=== PATIENT | male | born 1955 | race Caucasian/White ===

== ENCOUNTER 2016-09-05 07:36 | Day surgery (SDC) | payer OTHER ==
[~2016-09-05] VITALS: Ht 177.8 cm; Wt 124.7 kg
[~2016-09-05 07:36] MED LIST: AMARYL2 MG PO; AVAPRO300 MG PO; CYMBALTA30 MG PO; CYMBALTA60 MG PO; FUROSEMIDE40 MG PO; GABAPENTIN300 MG PO; GLIMEPIRIDE2 MG PO; HYDROCODON-ACE1 EAC7 PO; K-DUR20 MEQ PO; METAXALONE800 MG PO; METFORMIN HCL1000 MG PO; NORVASC5 MG PO; PERCOCET 5/31 TABLET PO; PRAVASTATIN SOD40 MG PO; VOLTAREN 1% GE100 GM TP; ZANAFLEX4 M1 PO
[2016-09-05 08:33] LABS: POINT-OF-CARE METER ID UU13113694; POINT-OF-CARE USER ID AHSRSCSLC11
== END 2016-09-05 09:43 | disposition home or self-care (01) ==
LOC: PAIN 07:36 → SDC 08:30 → PAIN 09:43
PROVIDERS: Anesthesiology Pain Medicine
DX: M47.812 Spondylosis without myelopathy or radiculopathy, cervical region (principal); M54.2 Cervicalgia; G89.29 Other chronic pain; M48.06 Spinal stenosis, lumbar region; M47.816 Spondylosis without myelopathy or radiculopathy, lumbar region; E78.5 Hyperlipidemia, unspecified; G56.21 Lesion of ulnar nerve, right upper limb; M96.1 Postlaminectomy syndrome, not elsewhere classified; I10 Essential (primary) hypertension; D11.9 Benign neoplasm of major salivary gland, unspecified; Z87.891 Personal history of nicotine dependence; Z79.84 Long term (current) use of oral hypoglycemic drugs
CPT/HCPCS: 82948; J1030; J2250; J3010; S0020

== ENCOUNTER 2016-09-12 07:21 | Day surgery (SDC) | payer OTHER ==
[~2016-09-12] VITALS: Ht 177.8 cm; Wt 124.7 kg
[2016-09-12 08:05] LABS: POINT-OF-CARE METER ID UU13113694
== END 2016-09-12 09:23 | disposition home or self-care (01) ==
LOC: PAIN 07:21 → SDC 08:00 → PAIN 08:00
PROVIDERS: Anesthesiology Pain Medicine
DX: M47.812 Spondylosis without myelopathy or radiculopathy, cervical region (principal); M54.2 Cervicalgia; G89.29 Other chronic pain; M50.30 Other cervical disc degeneration, unspecified cervical region; M47.26 Other spondylosis with radiculopathy, lumbar region; I10 Essential (primary) hypertension; E11.9 Type 2 diabetes mellitus without complications; E78.5 Hyperlipidemia, unspecified; G56.21 Lesion of ulnar nerve, right upper limb; Z87.891 Personal history of nicotine dependence; Z79.84 Long term (current) use of oral hypoglycemic drugs; Z79.891 Long term (current) use of opiate analgesic
CPT/HCPCS: 82948; J1030; J2250; J3010; S0020

== ENCOUNTER 2016-12-15 10:33 | Day surgery (SDC) | payer OTHER ==
[~2016-12-15] VITALS: Ht 177.8 cm; Wt 119.2 kg
[2016-12-15 11:00] LABS: POINT-OF-CARE METER ID UU14174212
== END 2016-12-15 12:08 | disposition home or self-care (01) ==
LOC: PAIN 10:33 → SDC 11:30 → PAIN 12:08
PROVIDERS: Anesthesiology Pain Medicine
DX: M47.812 Spondylosis without myelopathy or radiculopathy, cervical region (principal); M54.2 Cervicalgia; G89.29 Other chronic pain; M96.1 Postlaminectomy syndrome, not elsewhere classified; M47.26 Other spondylosis with radiculopathy, lumbar region; M50.31 Other cervical disc degeneration, high cervical region; I10 Essential (primary) hypertension; E11.9 Type 2 diabetes mellitus without complications; E78.5 Hyperlipidemia, unspecified; G57.10 Meralgia paresthetica, unspecified lower limb; Z87.891 Personal history of nicotine dependence; M79.1 Myalgia; Z79.84 Long term (current) use of oral hypoglycemic drugs
CPT/HCPCS: 82948; J1030; J2250; J3010; S0020

== ENCOUNTER 2017-03-09 08:40 | Day surgery (SDC) | payer OTHER ==
[~2017-03-09] VITALS: Ht 177.8 cm; Wt 119.2 kg
[~2017-03-09 08:40] MED LIST changes: +ULORIC40 MG PO
[2017-03-13] MEDS ORDERED: ZANAFLEX4 M1 PO (11:11)
[2017-03-13] MEDS ORDERED: PERCOCET 5/31 TABLET PO (11:11)
[2017-03-13] MEDS ORDERED: FISH OIL 1,0001 EAC7 PO (11:11)
[2017-03-13] MEDS ORDERED: CYMBALTA30 MG PO (11:12)
[2017-03-13] MEDS ORDERED: AVAPRO300 MG PO (11:12)
[2017-03-13] MEDS ORDERED: CYMBALTA60 MG PO (11:12)
[2017-03-13] MEDS ORDERED: AMARYL2 MG PO (11:13)
[2017-03-13] MEDS ORDERED: LASIX40 MG PO (11:13)
[2017-03-13] MEDS ORDERED: GLUCOPHAGE1000 MG PO (11:14)
== END 2017-03-09 10:20 | disposition home or self-care (01) ==
LOC: PAIN 08:40 → SDC 09:30 → PAIN 09:30
PROVIDERS: Anesthesiology Pain Medicine
PROC: BR161ZZ Fluoroscopy of Lumbar Facet Joint(s) using Low Osmolar Contrast (ICD-10-PCS; principal; 2017-03-09)
PROC: 3E0T3BZ Introduction of Anesthetic Agent into Peripheral Nerves and Plexi, Percutaneous Approach (ICD-10-PCS; principal; 2017-03-09)
PROC: 3E0T33Z Introduction of Anti-inflammatory into Peripheral Nerves and Plexi, Percutaneous Approach (ICD-10-PCS; principal; 2017-03-09)
DX: M47.26 Other spondylosis with radiculopathy, lumbar region (principal); G89.29 Other chronic pain; M54.5 Low back pain; M48.061 Spinal stenosis, lumbar region without neurogenic claudication; M79.1 Myalgia; M96.1 Postlaminectomy syndrome, not elsewhere classified; E66.01 Morbid (severe) obesity due to excess calories; Z68.37 Body mass index [BMI] 37.0-37.9, adult; I10 Essential (primary) hypertension; E11.9 Type 2 diabetes mellitus without complications; E78.5 Hyperlipidemia, unspecified; Z79.84 Long term (current) use of oral hypoglycemic drugs; Z79.891 Long term (current) use of opiate analgesic; Z87.891 Personal history of nicotine dependence
CPT/HCPCS: 82948; J1030; J2250; J3010; S0020

== ENCOUNTER 2017-03-16 08:37 | Day surgery (SDC) | payer OTHER ==
[~2017-03-16] VITALS: Ht 177.8 cm; Wt 119.7 kg
[~2017-03-16 08:37] MED LIST changes: +FISH OIL 1,0001 EAC7 PO; +GLUCOPHAGE1000 MG PO; +LASIX40 MG PO
== END 2017-03-16 09:55 | disposition home or self-care (01) ==
LOC: PAIN 08:37 → SDC 09:15 → PAIN 09:15
PROVIDERS: Anesthesiology Pain Medicine
DX: M47.26 Other spondylosis with radiculopathy, lumbar region (principal); M51.16 Intervertebral disc disorders with radiculopathy, lumbar region; G89.29 Other chronic pain; M48.061 Spinal stenosis, lumbar region without neurogenic claudication; M79.1 Myalgia; M96.1 Postlaminectomy syndrome, not elsewhere classified; E11.9 Type 2 diabetes mellitus without complications; E78.5 Hyperlipidemia, unspecified; E66.01 Morbid (severe) obesity due to excess calories; Z68.37 Body mass index [BMI] 37.0-37.9, adult; Z79.891 Long term (current) use of opiate analgesic; Z79.84 Long term (current) use of oral hypoglycemic drugs; Z87.891 Personal history of nicotine dependence
CPT/HCPCS: 82948; J1030; J2250; J3010; S0020

== ENCOUNTER 2017-06-12 10:15 | Day surgery (SDC) | payer OTHER ==
[~2017-06-12] VITALS: Ht 177.8 cm; Wt 119.7 kg
== END 2017-06-12 12:15 | disposition home or self-care (01) ==
LOC: PAIN 10:15 → SDC 11:00 → PAIN 11:00
PROVIDERS: Anesthesiology Pain Medicine
DX: M47.816 Spondylosis without myelopathy or radiculopathy, lumbar region (principal); M48.061 Spinal stenosis, lumbar region without neurogenic claudication; M54.16 Radiculopathy, lumbar region; M79.1 Myalgia; Z87.891 Personal history of nicotine dependence; M96.1 Postlaminectomy syndrome, not elsewhere classified; G89.29 Other chronic pain; E11.9 Type 2 diabetes mellitus without complications; F32.9 Major depressive disorder, single episode, unspecified; E78.5 Hyperlipidemia, unspecified; Z79.891 Long term (current) use of opiate analgesic; Z79.84 Long term (current) use of oral hypoglycemic drugs
CPT/HCPCS: 82948; J1030; J2250; S0020

== ENCOUNTER 2017-07-18 09:44 | Day surgery (SDC) | payer OTHER ==
[~2017-07-18] VITALS: Ht 177.8 cm; Wt 80.3 kg
== END 2017-07-18 11:18 | disposition home or self-care (01) ==
LOC: PAIN 09:44 → SDC 10:30 → PAIN 10:30
PROVIDERS: Anesthesiology Pain Medicine
PROC: 3E0T3TZ Introduction of Destructive Agent into Peripheral Nerves and Plexi, Percutaneous Approach (ICD-10-PCS; principal; 2017-07-18)
PROC: BR161ZZ Fluoroscopy of Lumbar Facet Joint(s) using Low Osmolar Contrast (ICD-10-PCS; principal; 2017-07-18)
DX: M47.816 Spondylosis without myelopathy or radiculopathy, lumbar region (principal); M48.061 Spinal stenosis, lumbar region without neurogenic claudication; M51.16 Intervertebral disc disorders with radiculopathy, lumbar region; M79.1 Myalgia; M47.812 Spondylosis without myelopathy or radiculopathy, cervical region; I10 Essential (primary) hypertension; E78.5 Hyperlipidemia, unspecified; E11.9 Type 2 diabetes mellitus without complications; Z79.891 Long term (current) use of opiate analgesic; Z87.891 Personal history of nicotine dependence; Z79.84 Long term (current) use of oral hypoglycemic drugs
CPT/HCPCS: 82948; J1030; J2250; S0020